=== PATIENT | female | born 1960 | race Caucasian/White ===

== ENCOUNTER 2022-04-16 15:32 | Emergency (ER) | payer MEDICAID ==
[~2022-04-16] VITALS: Ht 167.6 cm; Wt 59.0 kg
[2022-04-16] MEDS ORDERED: HALOPERIDOL IM 5 MG/ML VIAL IM ONE (16:15)
[2022-04-16] MEDS ORDERED: LORazepam 2 MG/ML VIAL IVP ONE (16:15)
[2022-04-16] MEDS ORDERED: LORazepam 2 MG/ML VIAL IM ONE (16:55)
--- NOTE | 2022-04-16 17:03 | NUR ---
PT CONTINUES TO REFUSE VITAL SIGNS TAKING, STATING 'ARE YOU DONE NOW/" SWATTING AWAY AT THE TEMPERATURE PROBE, THE PULSE OXIMETER
--- NOTE | 2022-04-16 19:00 | NUR ---
PT IS RESTING. WAITING FOR HER URINE.
--- NOTE | 2022-04-16 19:16 | NUR ---
Pt report given to LOUISA VILLATORO. Transfer of care at this time.
--- NOTE | 2022-04-16 19:22 | NUR ---
PER DR VANCE NO IV FOR PT, ONLY URINE AND CHANGE INTO A GOWN
[2022-04-16 19:25] LABS: BASOPHILS % (AUTO) 0.9 % (0.0-2.0); EOSINOPHILS # (AUTO) 0.1 K/uL (0-0.4); EOSINOPHILS % (AUTO) 2.8 % (0.0-4.0); HEMOGLOBIN 11.4 g/dL (12.0-16.0); LYMPHOCYTES # (AUTO) 1.7 K/uL (2.5-16.5); MEAN CORPUSCULAR HEMOGLOBIN 31 pg (27-31); MEAN CORPUSCULAR HGB CONC 34 g/dL (33-37); MEAN CORPUSCULAR VOLUME 92.1 fL (80-94); MONOCYTES # (AUTO) 0.4 K/uL (0.8-1.0); MONOCYTES % (AUTO) 7.6 % (1.7-9.3); NEUTROPHILS # (AUTO) 2.7 K/uL (1.8-7.7); NEUTROPHILS % (AUTO) 54.7 % (42.2-75.2); PLATELET COUNT (AUTO) 196 K/uL (140-450); RED BLOOD CELL COUNT(AUTO) 3.69 MIL/uL (4.20-5.40); RED CELL DISTRIBUTION WIDTH 13.8 % (11.6-13.7); WHITE BLOOD COUNT (AUTO) 4.9 K/uL (4.8-10.8)
[2022-04-16 19:40] LABS: ACETAMINOPHEN < 0.5 ug/ml (10-30); ALBUMIN 2.7 g/dL (3.4-5.0); ANION GAP 9.8 (8-16); ASPARTATE AMINOTRANSFERASE 31 U/L (15-37); CARBON DIOXIDE 30.9 mmol/L (21-32); CHLORIDE 108 mmol/L (98-107); CREATININE 0.7 mg/dL (0.6-1.3); GFR ARICAN-AMERICAN 110 mL/min (>90); GLUCOSE 87 mg/dL (74-106); POTASSIUM 3.7 mmol/L (3.5-5.1); SODIUM SERUM 145 mmol/L (136-145); TOTAL BILIRUBIN 0.3 mg/dL (0.0-1.0); UREA NITROGEN, BLOOD 15 mg/dL (7-18)
[2022-04-16 19:42] LABS: SALICYLATE < 2.8 mg/dL (2.8-20.0)
--- NOTE | 2022-04-16 22:10 | NUR ---
PT WAS CLEANED. HAD BOWEL MOVEMENT 50 ML. STAIGHT CATH PATIENT GOT 70 ML.
[2022-04-16 22:24] LABS: APPEARANCE,URINE CLEAR (CLEAR); BILIRUBIN,URINE NEGATIVE (NEGATIVE); BLOOD, URINE NEGATIVE (NEGATIVE); COLOR,URINE YELLOW (YELLOW); LEUKOCYTE ESTERASE ,URINE NEGATIVE (NEGATIVE); NITRITE, URINE NEGATIVE (NEGATIVE); PH,URINE 7.5 (5.0-9.0); UGLUCOSE 1+ (NEGATIVE)
[2022-04-16 22:33] LABS: BARBITURATE, URINE NEGATIVE ng/ml (NEG <=200); BENZODIAZEPINE, URINE NEGATIVE ng/mL (NEG <=200); CANNABINOID, URINE NEGATIVE ng/mL (NEG <=50); COCAINE, URINE NEGATIVE ng/mL (NEG <=300); OPIATE, URINE NEGATIVE ng/mL (NEG <=2000); PHENCYCLIDINE SCREEN,URINE NEGATIVE ng/mL (NEG <=25)
--- NOTE | 2022-04-17 02:44 | NUR ---
PT IS SLEEPING. BED LOWEST POSITION.
--- NOTE | 2022-04-17 07:15 | NUR ---
RECEIVED REPORT FROM LOUISA VILLATORO. PT CALM AND SLEEPING. VITALS STABLE. NO ACUTE DISTRESS NOTED. NO IV ESTABLISHED ON PATIENT AT THIS TIME.
[2022-04-17 07:20] VITALS: BP 122/73
--- NOTE | 2022-04-17 07:20 | NUR ---
Patient given written and verbal discharge instructions and verbalizes understanding. Given copies of tests performed during visit. Patient is awake, alert and oriented. Ambulatory with steady gait. Refuses offer of detention placement. Given list of available shelters in surrounding areas. pt refused to sign any dc instruction. food provided upon dc. pt clothing is weather appropriate.
== END 2022-04-17 07:20 | disposition home or self-care (01) ==
LOC: MED 15:32 → EDBD 15:32 → MED 04-17 07:20
DX: R41.82 Altered mental status, unspecified (principal)
CPT/HCPCS: 36415; 70450; 71045; 80053; 80305; 81003; 81025; 84484; 85025; 93005; 96372; 99285; G0480; G0482; J1630; J2060; Q0092

== ENCOUNTER 2022-04-17 08:38 | Emergency (ER) | payer MEDICAID ==
[~2022-04-17] VITALS: Ht 165.1 cm; Wt 65.8 kg
[2022-04-17 08:51] VITALS: BP 167/97
--- NOTE | 2022-04-17 09:43 | NUR ---
BIBA C/O [facility] ABDOMINAL [facility] X 2 WEEKS. SEEN HERE & DC FROM ER FOR AMPHATAMINE INTOXICATION THIS AM.ABDOMEN SOFT,. NO TENDERNESS. DENIES N/V/D; SKIN IS PINK/WARM/DRY;LUNGS CLEAR BL; HR EVEN AND REGULAR; PT DENIES ANY FEVER, CP, SOB, OR COUGH AT THIS TIME.
[2022-04-17 10:35] VITALS: BP 167/97
--- NOTE | 2022-04-17 10:35 | NUR ---
PATIENT ELOPED FROM FACILITY. DISCHARGE INSTRUCTIONS NOT GIVEN TO PATIENT. DR. WALDROP NOTIFIED.
== END 2022-04-17 10:35 | disposition left against medical advice (07) ==
LOC: MED 08:38
DX: R10.9 Unspecified abdominal pain (principal); Z53.21 Procedure and treatment not carried out due to patient leaving prior to being seen by health care provider